=== PATIENT | male | born 1950 | race Hispanic/Latino ===

== ENCOUNTER → 2023-10-22 | Outpatient (REF) | payer MEDICARE ==
[~2023-10-22] MED LIST: ASPIRIN81 M2 PO; ATARAX 25MG25 MG; BACLOFEN; GADOBENATE DIMEGLUMINE 0 ML IV ONE; NITROGLYCERIN; VOLTAREN50 M1 GT; Z.0.FLEXERIL10 MG PO; Z.0.HYZAAR 50-12.51 PO; Z.0.IMDUR30 MG PO; Z.0.JANUMET 50-1,01 PO; Z.0.METOPROLOL TART5 PO; Z.0.PLAVIX75 MG PO; Z.0.TRILEPTAL300 MG PO; Z.0.ZOCOR20 MG PO
== END ==
LOC: MRI 07:50
PROVIDERS: ATTEND Orthopaedic Surgery Orthopaedic Surgery of the Spine
DX: M54.50 Low back pain, unspecified (principal); M54.16 Radiculopathy, lumbar region
CPT/HCPCS: 72100